=== PATIENT | female | born 1985 ===

== ENCOUNTER 2016-07-13 08:11 | Inpatient (IN) | payer MEDICAID ==
[2016-07-19] MEDS ORDERED: LACTATED RINGERS 1,000 ML ONE (19:54)
[2016-07-19] MEDS ORDERED: MINERAL OIL 25 ML BOT ONE (19:54)
[2016-07-19] MEDS ORDERED: OXYTOCIN 10 UNITS/ML VIAL ONE (19:54)
[2016-07-19] MEDS ORDERED: PUMP TUBING ONE (19:54)
[2016-07-19] MEDS ORDERED: OXYTOCIN IN LR 500 ML IV ONE ×2 (19:54→21:03)
[2016-07-19] MEDS ORDERED: LIDOCAINE Viscous 2% 15 ML UDCUP ONE (19:54)
[2016-07-19] MEDS ORDERED: IV START KIT ONE (19:54)
[2016-07-19] MEDS ORDERED: LIDOCAINE 1% (PRES FREE) 30 ML VIAL ONE (19:54)
[2016-07-19] MEDS ORDERED: SODIUM CHLORIDE 0.9% FLUSH 20 ML ONE (19:55)
[2016-07-19] MEDS: LACTATED RINGERS 1,000 ML IV PRN ×2 (20:25→22:04)
[2016-07-19 21:13] LABS: HEMATOCRIT 35.5 % (37.0-47.0); HEMOGLOBIN 11.9 gm/l (12.0-16.0); MEAN CELL VOLUME 89.4 fl (81.0-99.0); MEAN CORPUSCULAR HGB CONC 33.5 g/dl (33.0-37.0); RED CELL DISTRIBUTION WIDTH 13.8 % (11.5-14.5)
--- NOTE | 2016-07-19 21:36 | PDOC36 ---
Provider Note Note: cc: Admission H&P HPI: 31 y.o. year old SUSY 07/13/2016, by Ultrasound at 40w6d who is here for IOL for postdates. REVIEW OF SYSTEMS GENERAL:~ No fever or headache EYES:~ No double or blurry vision. CARDIOVASCULAR:~ No chest pain. RESPIRATORY:~ No severe shortness of breath or cough. GASTROINTESTINAL:~ No nausea or vomiting or right upper quadrant pain.~ PSYCHIATRIC:~ No anxiety or depression. PROBLEMS Postdates OB HISTORY #: 1, Current PSH None SOC HX Reports that she has never smoked. She has never used smokeless tobacco. She reports that she drinks alcohol, but stopped when she found out she was . She reports that she does not use illicit drugs. ALL No Known Allergies MEDICATIONS ~ hydrocortisone 1 % ointment, Apply topically 2 (two) times a day., Disp: 30 g , Rfl: 0 PHYSICAL EXAMINATION VITAL SIGNS:~ AFVSS Estimated body mass index is 31.57 FHT:~ 150s with moderate variability and positive accelerations. She is also having variable decelerations. Category II, reassuring so far, will bolus some fluid. Gross:~ Contractions every 2-5 min SVE:~ 3/80/-1 GENERAL:~ No distress CARDIOVASCULAR:~ Regular rate and rhythm, no murmur, JVD or pedal edema. RESPIRATORY:~ Clear to auscultation bilaterally, respiratory effort is nonlabored at rest. GASTROINTESTINAL:~ Gravid no fundal tenderness NEUROLOGIC:~ Deep tendon reflexes are 2+ in the knees.~ Cranial nerves II-XII are grossly intact. PSYCHIATRIC:~ Alert and oriented x3, judgement and memory is intact, mood is pleasant. LABS & STUDIES O+ Antibody- Rubella Immune Hep B- HIV- GC/Chlamydia- Trep- Hgb 11.8 GBS negative ULTRASOUNDS 17 wk changes EDC incomplete survey, ant placenta, no previa 24 wks normal survey, ant placenta no previa ASSESSMENT 31 y.o. year old SUSY 07/13/2016, by Ultrasound at 40w6d, here for IOL for postdates. PLAN Induction of Labor: Patient is jorgito, SVE is 3 cm, will continue to monitor as she is having some variable decels. Will continue to monitor and bolus some LR and see if this helps the decels. :~ Yes Control: Condoms Pediatrics:~ Reema Thao MD MPH
[2016-07-19 21:46] VITALS: BMI 32.1
[2016-07-20] MEDS ORDERED: EPIDURAL PUMP SET ONE (00:24)
[2016-07-20] MEDS ORDERED: FENTANYL/ROPIVACAINE EPIDURAL 250 ML EP ONE (00:24)
--- NOTE | 2016-07-20 00:32 | PDOC36 ---
Provider Note Note: SUBJECTIVE: Having stronger contractions, requesting an epidural, still intact OBJECTIVE: VS: AFVSS FHT: 150s with moderate variability and positive accelerations, repetitive deep variables responsive to position changes. Category II [place]: Contractions q2-5 min SVE: /-1 ASSESSMENT: 31 y.o. year old SUSY 07/13/2016, by Ultrasound at 40w6d, here for IOL for postdates. PLAN Induction of Labor: Pt in labor without cervical ripening, having variable decels which respond to position, fluid boluses and oxygen. Currently, category II. Contractions are getting stronger and patient requesting a epidural, will place that and continue to monitor closely. Membranes still intact.
[2016-07-20] MEDS ORDERED: BUPIVACAINE 0.25% (PRES FREE) 30 ML VIAL ONE (00:35)
[2016-07-20] MEDS ORDERED: EPIDURAL PROCEDURE TRAY ONE (00:35)
[2016-07-20] MEDS: LACTATED RINGERS 1,000 ML IV PRN (01:22)
[2016-07-20] MEDS: FENTANYL/ROPIVACAINE EPIDURAL 250 ML EP SCH (02:00)
[2016-07-20] MEDS ORDERED: EPHEDRINE SULFATE 50 MG/ML 1ML VIAL IV PRN (03:02)
[2016-07-20] MEDS ORDERED: METOCLOPRAMIDE HCL 5 MG/ML 2ML VIAL IV PRN (03:02)
[2016-07-20] MEDS ORDERED: LACTATED RINGERS 500 ML IV PRN (03:02)
[2016-07-20] MEDS ORDERED: DIPHENHYDRAMINE HCL 50 MG/1 ML VIAL IV PRN (03:02)
[2016-07-20] MEDS ORDERED: ONDANSETRON 4 MG/2ML 2 ML VIAL IV PRN (03:02)
[2016-07-20] MEDS ORDERED: NALBUPHINE HCL 20 MG/ML AMP IV PRN (03:02)
[2016-07-20] MEDS ORDERED: NALOXONE HCL 0.4 MG/ML VIAL IV PRN (03:02)
[2016-07-20] MEDS ORDERED: SODIUM CHLORIDE 0.9% 500 ML IV PRN (03:02)
--- NOTE | 2016-07-20 04:22 | PDOC36 ---
Provider Note Note: SUBJECTIVE: Comfortable, cannot feel contractions since epidural OBJECTIVE: VS: AFVSS FHT: 140s, moderate variability, positive accels with variable decels, category II [place]: Contractions every 5-10 minutes SVE: 6 cm ASSESSMENT: 31 y.o. year old SUSY 07/13/2016, by Ultrasound at 40w6d, here for IOL for postdates. PLAN Induction of Labor: Had a prolonged variable after epidural then another one a couple of minutes later which responded to position changes and O2 around 1:30 am. SROMd at 3:20 am, strip looking better. The patient able to sit up a bit in bed without deep variables. Will continue monitoring closely with expectant management.
[2016-07-20] MEDS: LACTATED RINGERS 1,000 ML IV SCH ×5 (06:00→16:12)
--- NOTE | 2016-07-20 08:24 | PDOC36 ---
Provider Note Subject: SUBJECTIVE: NO changes. Feeling well. Epidural working well. OBJECTIVE: VS: 99/5, P 82 T 98.5 FHT: 145 baseline, mod tracy, + accels, intermittent variables and did have one possible late decel in last hour. Category II [place]: Contractions every 5-7min SVE: My exam /-1, anterior ASSESSMENT: 31 y.o. year old SUSY 07/13/2016, by Ultrasound at 40w6d, here for IOL for postdates. PLAN Labor- IOL for postdates. She has not received any interventions at this time. She did have some intermittent variable decels and she has been observed up to this time. Given no change and FM more reassuring I think our best option is to help augment her with pitocin. Will observe for category I strip then start. FWB- category II strip initially but now improving to category I GBS neg RH +
[2016-07-20] MEDS: OXYTOCIN IN LR 500 ML IV PRN ×7 (08:57→14:02)
--- NOTE | 2016-07-20 11:35 | PDOC36 ---
Provider Note Subject: SUBJECTIVE: NO changes. Feeling well. Epidural working well. OBJECTIVE: VS: 114/71 P 86 T 98.8 FHT: 145 baseline, mod tracy, intermittent variables. With last exam did have decel that responded to position changes to 90's. [place]: q2-3 min SVE: 7-8/95/+1, transverse position Pit at 6 ASSESSMENT: 31 y.o. year old SUSY 07/13/2016, by Ultrasound at 40w6d, here for IOL for postdates. PLAN Labor- IOL for postdates. Making good progress since pit started. Continue with augmentation. Anticipate . FWB- category II in setting of recent decel. Much improved and doing well. GBS neg RH +
--- NOTE | 2016-07-20 14:43 | PCMDEL ---
Delivery Note - Labor 1st stage (hr/min):: 13 hours 2nd stage (hr/min):: 1 hour 11 min 3rd stage (hr/min):: 5 min Total (hr/min):: 14 hours Pushed (hr/min):: 1 hour 11 min - Delivery Delivery (Date): 07/20/16 Delivery (Time): 14:18 Gender: Female Presentation: Cephalic Position: OA Umbilical Cord: 3 Vessel Delayed Cord Clamping:: 2-3 min 1 Minute Total: 9 5 Minute Total: 9 Placenta:: intact EBL:: 300 Perineum:: Second deg midlin perineal lac repaired in usual fashion with 3-0 vicryl. Comments:: Presented for IOL for post dates. Due to category II monitoring pt was observe for over 12 hours and progressed into normal labor pattern. This was later augmented with pitocin when she stalled at 6 cm. She then progressed on normal labor curve to deliver via NVSD without complications. Nuchal x 1 easily reduced at perineum. Vigorous . Placed on mom's chest. Apgars 9,9. Delayed cord clamping x 2 min. Active third stage managment with pit and fundal massage.
[2016-07-20] MEDS ORDERED: FLU VACC 2016-17 (36MO-64Y)/PF 60 MCG/0.5 ML SYRINGE IM V ONE (14:48)
[2016-07-20] MEDS ORDERED: HYDROCODONE/ACETAMINOPHEN 5/325MG TABLET PO PRN (14:50)
[2016-07-20] MEDS ORDERED: BENZOCAINE/MENTHOL 60 APPLIC/BOT TP PRN (14:50)
[2016-07-20] MEDS ORDERED: LANOLIN 50 APPLIC/7G TUBE TP PRN (14:50)
[2016-07-20] MEDS ORDERED: IBUPROFEN 800 MG TABLET PO PRN (14:50)
[2016-07-20] MEDS ORDERED: MAGNESIUM HYDROXIDE 30 ML UDCUP PO PRN (14:50)
[2016-07-20] MEDS ORDERED: LACTATED RINGERS 1,000 ML ONE (16:47)
[2016-07-21 06:45] LABS: HEMATOCRIT 31.1 % (37.0-47.0); HEMOGLOBIN 10.3 gm/l (12.0-16.0)
[2016-07-21] MEDS: FENTANYL/ROPIVACAINE EPIDURAL 250 ML EP SCH (10:38)
[2016-07-21] MEDS: DOCUSATE SODIUM 100 MG CAPSULE PO PRN (11:28)
--- NOTE | 2016-07-21 12:38 | PDOC44 ---
- Subjective Day: 1 Doing well. Able to ambulate, void and eat. No fever, chills, CP or sob. Reports Flatus, Reports Pain Tolerable, Reports , Reports Tolerating Regular Diet, Denies Nausea, Denies Vomiting - Objective Temp Pulse Resp BP Pulse Ox 97.5 F 69 16 101/58 07/21/16 08:03 07/21/16 08:03 07/21/16 08:03 07/21/16 08:03 Lab Results 07/21/16 06:20 Hgb 10.3 L Hct 31.1 L Current Medications Generic Name Dose Route Start Last Admin Trade Name Freq PRN Reason Stop Dose Admin Acetaminophen/Hydrocodone Bitart 1 - 2 tab 07/20/16 14:50 [place] 5/325 PO Q4H PRN Pain (Moderate) Benzocaine/Menthol 1 applic 07/20/16 14:50 07/20/16 20:13 Dermoplast TP 1 bot PRN PRN Administration Patient Comfort Docusate Sodium 100 mg 07/20/16 14:50 07/21/16 11:28 Colace PO 100 mg DAILY PRN Administration Comfort Emollient Ointment 1 applic 07/20/16 14:50 [id number] TP PRN PRN sore nipples Ropivacaine/Fentanyl/NS 250 mls @ 0 mls/hr 07/20/16 03:03 07/21/16 10:38 Fentanyl 2 Mcg/Ml + Ropivacaine 0.125% Ep Bag EP Not Given EPI CHRIS Protocol Per Protocol Ibuprofen 800 mg 07/20/16 14:50 Motrin PO Q6H PRN Pain (Mild) Magnesium Hydroxide 30 ml 07/20/16 14:50 Milk Of Magnesia PO BEDTIME PRN Constipation - Physical Exam General: Afebrile, No Acute Distress Psych/Mental Status: Mood/Affect Appropriate, Judgment/Insight Intact, Bonding Well Neurological: Grossly Intact, Alert, Normal Speech HEENT: Atraumatic, Mucous membr. moist/pink Lungs: Clear to Auscultation Bilaterally Cardiovascular: Regular Rate and Rhythm Breast: Soft Fundus: Firm, Midline, Below Umbilicus Extremities: Full ROM Skin: Normal Color, Warm, Dry, Intact, No Rash - Problems:Assessment/Plan (1) (spontaneous vaginal delivery) Status: AcuteAssessment/Plan: Doing well, PPD#1 routine PP care Support BF Anticip DC home in AM (2) Post-dates , delivered, current hospitalization Status: AcuteAssessment/Plan: Was scheduled for post dates IOL, but came in to [facility] in labor, was augmented w Pitocin and had . Disposition: Stable, Anticipate DC Home Tomorrow
[2016-07-22] MEDS: DOCUSATE SODIUM 100 MG CAPSULE PO PRN (09:35)
[2016-07-22 09:45] VITALS: BP 128/70
--- NOTE | 2016-07-22 10:23 | PDOC39B ---
Hospital Course: ADMIT DATE: 07/19/16 DISCHARGE DATE: 07/22/16 ADMISSION DIAGNOSES: Intrauterine at term PROCEDURES: none HISTORY OF PRESENT ILLNESS: 31 year old G1 T0 L0 at 41 weeks 0 days presented for postdates induction of labor. HOSPITAL COURSE: The patient had normal vaginal delivery on 07/20/16. She worked closely with for difficulty. By day of discharge the patient is ambulating, eating, voiding, and passing flatus without difficulty. Pain is controlled and lochia is appropriate. She is , pumping, and giving back expressed breast milk. She has a feeding plan in place for discharge. - Physical Exam Vital Signs: Temp Pulse Resp BP Pulse Ox 98.0 F 72 16 128/70 07/22/16 08:40 07/22/16 08:40 07/22/16 08:40 07/22/16 08:40 General: Afebrile Psych/Mental Status: Mood/Affect Appropriate, Judgment/Insight Intact, Bonding Well Neurological: Grossly Intact, Alert HEENT: Atraumatic, EOMI Lungs: Clear to Auscultation Bilaterally, Normal Air Movement Cardiovascular: Regular Rate and Rhythm, Normal S1, Normal S2, No Murmur Breast: Soft, Skin intact Fundus: Firm, Midline, Below Umbilicus - Discharge Diagnosis (1) (spontaneous vaginal delivery) Status: AcuteAssessment/Plan: Doing well, PPD#2 routine PP care Support BF Anticip DC home in AM (2) Difficulty of mother performing Status: AcuteAssessment/Plan: Pt working closely with , has plan in place. Plan to offer breast, pump q2-3h, give back EBM or formula. Discussed paced bottle feeding with . Encouraged pt to attend groups, FU with [facility] as scheduled - Discharge Plan Condition: Stable Disposition: Home Instruction Forms: Vaginal Discharge Instructions Prescriptions: Docusate Sodium [COLACE 100 MG CAPSULE (SHF)] 100 mg PO DAILY PRN #60 capsule PRN Reason: Comfort Ibuprofen [IBUPROFEN 800 MG TABLET (SHF)] 800 mg PO Q8H PRN #100 tablet PRN Reason: Pain (Mild) Follow-Up: Mirlande Mccauley MD [Primary Care Provider] - In 6 weeks
== END 2016-07-22 12:06 | disposition home or self-care (01) | DRG 775 ==
LOC: EDSTATUS 19:09 → FBC 07-19 19:14
PROVIDERS: ADMIT Family Medicine; ATTEND Family Medicine
PROC: 3E0P7GC Introduction of Other Therapeutic Substance into Female Reproductive, Via Natural or Artificial Opening (ICD-10-PCS; 2016-07-19)
PROC: 10E0XZZ Delivery of Products of Conception, External Approach (ICD-10-PCS; principal; 2016-07-20)
PROC: 0KQM0ZZ Repair Perineum Muscle, Open Approach (ICD-10-PCS; 2016-07-20)
DX: O48.0 Post-term pregnancy (principal); O76 Abnormality in fetal heart rate and rhythm complicating labor and delivery; O70.1 Second degree perineal laceration during delivery; Z3A.41 41 weeks gestation of pregnancy; Z37.0 Single live birth